=== PATIENT | female | born 1950 | race Caucasian/White ===

== ENCOUNTER 2021-08-03 23:21 | Inpatient (IN) ==
[2021-08-03] MEDS ORDERED: SODIUM CHLORIDE 0.9% 500 ML IV STA (23:59)
[2021-08-04 00:24] LABS: Alanine Aminotransferase 30 U/L (13-56); Albumin 3.7 G/DL (3.4-5.0); Alkaline Phosphatase 87 U/L (45-117); Aspartate Amino Transferase 21 U/L (0-37); Bilirubin,Total < 0.39 MG/DL (0.20-1.00); Blood Urea Nitrogen 26 MG/DL (7-18); Calcium 9.4 MG/DL (8.5-10.1); Carbon Dioxide 23 MMOL/L (21-32); Estimated Glom Filtration Rate 83 ML/MIN; Glucose 112 MG/DL (74-106); Osmolality,Calculated 280.7 MOS/KG (273-304); Potassium 3.2 MMOL/L (3.5-5.1); Sodium 138 MMOL/L (136-145); Total Protein 7.5 G/DL (6.4-8.2)
[2021-08-04 00:42] LABS: Basophils # 0.1 10*3/uL (0.0-0.2); Basophils % 0.7 % (0.0-0.8); Eosinophils # 0.2 10*3/uL (0.0-0.87); Eosinophils % 1.7 % (0.00-10.9); Hematocrit 40.4 VOL% (35.7-47.0); Hemoglobin 12.9 GM/DL (12.0-16.0); Immature Granulocytes % 1.8 %; Lymphocytes # 3.4 10*3/uL (1.4-4.0); Lymphocytes % 30.9 % (21.3-54.2); Mean Corpuscular HGB Conc 31.9 GM/DL (32-36); Mean Corpuscular Volume 89.4 FL (87-102); Mean Platelet Volume 10.9 FL (9.6-12.0); Monocytes % 5.4 % (1.7-12.7); Neutrophils % 59.5 % (38.7-73.9); Platelet Count 258 T/CUMM (130-400); Red Blood Count 4.52 MC/CUMM (3.8-5.5); Red Cell Distribution Width 14.6 % (9.3-17.3); White Blood Count 10.8 T/CUMM (4-12)
[2021-08-04] MEDS ORDERED: POTASSIUM CHLORIDE 20 MEQ TABLET PO STA (01:21)
[2021-08-04] MEDS ORDERED: ACETAMINOPHEN 500 MG TABLET ONE (02:01)
[2021-08-04] MEDS ORDERED: SODIUM CHLORIDE 0.9% 1,000 ML IV SCH (04:47)
[2021-08-04 05:46] LABS: Amorphous Crystals,Urine Few /HPF (Few); Bacteria,Urine Many /HPF (Few); Bilirubin,Urine Negative (Negative); Blood, Urine Small mg/dL (Negative); Glucose,Urine (UA) Negative (Negative); Ketones,Urine 20 mg/dL (Negative); Mucus,Urine Occasional /LPF (Occasional); Nitrite,Urine Negative (Negative); Protein,Urine Negative; RBC,Urine 5 /HPF (0-4); Urine Appearance CLOUDY (Clear); Urine Color Yellow (Yellow); Urine Specific Gravity 1.014 (1.001-1.035); Urine Urobilinogen < 2.0 EU/DL (<2.0)
[2021-08-04 05:49] LABS: PT Patient Result 11.4 SECS (10.5-12.0)
[2021-08-04] MEDS ORDERED: fentaNYL 100 MCG/2 ML VIAL ONE (06:43)
[2021-08-04] MEDS ORDERED: propofoL 200 MG/20 ML VIAL IV ONE (06:43)
[2021-08-04] MEDS ORDERED: ROCURONIUM 50 MG/5 ML VIAL IV ONE (06:43)
[2021-08-04] MEDS ORDERED: MIDAZOLAM 2 MG/2 ML VIAL ONE (06:43)
[2021-08-04] MEDS ORDERED: LIDOCAINE 2% 5 ML VIAL ONE (06:44)
[2021-08-04] MEDS ORDERED: BACITRACIN OINT 0.9 GM PACK TOP ONE (06:50)
[2021-08-04] MEDS ORDERED: DEXAMETHASONE 4 MG/1 ML VIAL ONE ×2 (07:46→09:38)
[2021-08-04] MEDS ORDERED: BUPIVACAINE MPF 0.25% 30 ML VIAL ONE (07:46)
[2021-08-04] MEDS ORDERED: LIDOCAINE 1% 5 ML VIAL ONE (07:46)
[2021-08-04] MEDS ORDERED: ACETAMINOPHEN INJ 1,000 MG/100 ML VIAL IV ONE (09:09)
[2021-08-04] MEDS ORDERED: PHENYLEPHRINE 1 MG/10 ML SYRINGE IV ONE (09:17)
[2021-08-04] MEDS ORDERED: ePHEDrine 50 MG/ML VIAL ONE (09:25)
[2021-08-04] MEDS ORDERED: SEVOFLURANE 1 UNIT/15 MINUTE INH ONE ×4 (09:38→10:58)
[2021-08-04] MEDS ORDERED: ONDANSETRON 4 MG/2 ML VIAL ONE (09:38)
[2021-08-04] MEDS ORDERED: SODIUM CHLORIDE 0.9% 1,000 ML IV ONE (10:18)
[2021-08-04] MEDS ORDERED: MAGNESIUM HYDROXIDE SUSP 30 ML UDCUP PO PRN (11:05)
[2021-08-04] MEDS ORDERED: MORPHINE 2 MG/1 ML SYRINGE IV PRN ×2 (11:06)
[2021-08-04] MEDS ORDERED: LORazepam 1 MG TABLET PO PRN (11:07)
[2021-08-04] MEDS: POTASSIUM CHLORIDE INJ 20 MEQ in LACTATED RINGERS 1,000 ML IV SCH ×2 (12:30→20:40)
[2021-08-04] MEDS: APIXABAN 2.5 MG TABLET PO SCH (20:41)
[2021-08-05] MEDS: POTASSIUM CHLORIDE INJ 20 MEQ in LACTATED RINGERS 1,000 ML IV SCH (05:00)
[2021-08-05 06:44] LABS: Basophils % 0.3 % (0.0-0.8); Eosinophils # 0.2 10*3/uL (0.0-0.87); Eosinophils % 1.5 % (0.00-10.9); Hematocrit 33.3 VOL% (35.7-47.0); Hemoglobin 10.8 GM/DL (12.0-16.0); Immature Granulocytes % 0.8 %; Immature Granulocytes Absolute 0.11 #; Lymphocytes # 1.6 10*3/uL (1.4-4.0); Lymphocytes % 11.6 % (21.3-54.2); Mean Corpuscular HGB Conc 32.4 GM/DL (32-36); Mean Corpuscular Volume 88.6 FL (87-102); Monocytes % 5.9 % (1.7-12.7); Neutrophils % 79.9 % (38.7-73.9); Platelet Count 175 T/CUMM (130-400); Red Blood Count 3.76 MC/CUMM (3.8-5.5); Red Cell Distribution Width 15.1 % (9.3-17.3); White Blood Count 13.4 T/CUMM (4-12)
[2021-08-05 07:09] LABS: Osmolality,Calculated 280.3 MOS/KG (273-304); Potassium 3.9 MMOL/L (3.5-5.1)
[2021-08-05] MEDS: APIXABAN 2.5 MG TABLET PO SCH ×2 (09:25→20:41)
[2021-08-05] MEDS: PANTOPRAZOLE 40 MG TABLET PO SCH (09:27)
[2021-08-05] MEDS: ONDANSETRON 4 MG/2 ML VIAL IV PRN (14:25)
[2021-08-05] MEDS: KETOROLAC 30 MG/1 ML VIAL IV PRN (18:49)
[2021-08-06] MEDS: KETOROLAC 30 MG/1 ML VIAL IV PRN (01:29)
[2021-08-06] MEDS: PANTOPRAZOLE 40 MG TABLET PO SCH (09:01)
[2021-08-06] MEDS: APIXABAN 2.5 MG TABLET PO SCH ×2 (09:01→20:40)
[2021-08-07] MEDS: PANTOPRAZOLE 40 MG TABLET PO SCH (08:47)
[2021-08-07] MEDS: APIXABAN 2.5 MG TABLET PO SCH ×2 (08:47→21:09)
[2021-08-07] MEDS: ONDANSETRON 4 MG/2 ML VIAL IV PRN (21:10)
[2021-08-08] MEDS: APIXABAN 2.5 MG TABLET PO SCH ×3 (08:59→22:02)
[2021-08-08] MEDS: PANTOPRAZOLE 40 MG TABLET PO SCH (08:59)
[2021-08-09] MEDS: PANTOPRAZOLE 40 MG TABLET PO SCH (08:06)
[2021-08-09] MEDS: APIXABAN 2.5 MG TABLET PO SCH (08:06)
[2021-08-09 15:58] VITALS: BP 110/69
== END 2021-08-09 17:35 | disposition swing bed (61) | DRG 959 ==
LOC: EDBD → EDUNIT# → N.ED 23:21 → N.EDINP 08-04 02:33 → N.3E 08-04 04:45
PROVIDERS: ADMIT Orthopaedic Surgery; ATTEND Orthopaedic Surgery